=== PATIENT | female | born 1955 | race Caucasian/White ===

== ENCOUNTER 2019-01-10 12:23 | Day surgery (SDC) | payer BC, OTHER ==
[~2019-01-10 12:23] MED LIST: CEFAZOLIN 2 GM/50 ML (PMX) 50 ML IVPB; SOD CHLORIDE 0.9% 1,000 ML IV
[2019-01-10] MEDS ORDERED: MIDAZOLAM 1 MG/ML 2 ML INJ (15:17)
[2019-01-10] MEDS ORDERED: FENTAnyl 50 MCG/ML VIAL (15:18)
[2019-01-10] MEDS: LIDOCAINE 1% (MPF) 30 ML INJ (15:37)
[2019-01-10] MEDS: BUPIVACAINE 0.5%/EPI (SDV) 30 ML INJ (15:37)
[2019-01-10] MEDS: BACITRACIN/POLYMYXIN 28.35 GM OINT TOP (15:54)
[2019-01-10] MEDS ORDERED: CEFAZOLIN 1 GM INJ (16:00)
[2019-01-10] MEDS ORDERED: ETOMIDATE 20 MG INJ (16:00)
[2019-01-10] MEDS ORDERED: LIDOCAINE 2% (SDV) 5 ML INJ (16:00)
[2019-01-10] MEDS ORDERED: ONDANSETRON 4 MG INJ (16:01)
[2019-01-10] MEDS ORDERED: PROPOFOL 20 ML (16:06)
[2019-01-10] MEDS ORDERED: IBUPROFEN 600 MG TAB PO (16:30)
[2019-01-10] MEDS ORDERED: hydrALAzine 20 MG INJ IV (16:30)
[2019-01-10] MEDS ORDERED: MEPERIDINE 25 MG INJ IV (16:30)
[2019-01-10] MEDS ORDERED: FENTAnyl 50 MCG/ML VIAL IV (16:30)
[2019-01-10] MEDS ORDERED: DIPHENHYDRAMINE 50 MG INJ IV (16:30)
[2019-01-10] MEDS ORDERED: LABETALOL HCL 20MG INJ IV (16:30)
[2019-01-10] MEDS ORDERED: ONDANSETRON 4 MG INJ IV ×2 (16:30)
[2019-01-10] MEDS ORDERED: HYDROmorphONE 1 MG/5 ML IV SYRINGE IV ×2 (16:30)
[2019-01-10] MEDS ORDERED: METOCLOPRAMIDE 10 MG INJ IV (16:30)
== END 2019-01-10 17:25 | disposition home or self-care (01) ==
LOC: SDS 12:23
DX: L72.0 Epidermal cyst (principal); I10 Essential (primary) hypertension; E78.5 Hyperlipidemia, unspecified; E11.9 Type 2 diabetes mellitus without complications
CPT/HCPCS: 14000; 82962; 88304